=== PATIENT | female | born 1995 | race Hispanic/Latino ===

== ENCOUNTER → 2017-11-04 | Outpatient (CLI) | payer OTHER ==
[2017-11-04 13:13] LABS: BASO % 0.1 % (0.0-1.0); EOS # 0.2 10^3/uL (0.0-0.50); EOS % 3.1 % (0.0-3.0); HEMATOCRIT 32.7 % (36.0-47.0); IMMATURE GRANULOCYTE # 0.1 10^3/uL (0-0); IMMATURE GRANULOCYTE % 0.9 % (0-0); LYMPH # 1.7 10^3/uL (1.5-6.5); LYMPH % 24.1 % (24.0-44.0); MEAN CORPUSCULAR HEMOGLOBIN 29.7 pg (27.0-33.0); MEAN CORPUSCULAR HGB CONC 33.6 g/dl (32.0-36.5); MEAN CORPUSCULAR VOLUME 88.4 fl (80.0-96.0); MONO # 0.6 10^3/uL (0.0-0.8); MONO % 8.8 % (0.0-5.0); NEUTROPHILS # 4.4 10^3/uL (1.8-7.7); PLATELET COUNT, AUTOMATED 308 10^3/uL (150-450); RED CELL DISTRIBUTION WIDTH 13.2 % (11.5-14.5)
[2017-11-04 14:51] LABS: CHLAMYDIA DNA AMPLIFICATION NEGATIVE (NEGATIVE); GC DNA AMPLIFICATION NEGATIVE (NEGATIVE)
[2017-11-05 17:29] LABS: RUBELLA IgG QUALITATIVE IMMUNE (IMMUNE)
[2017-11-05 17:37] LABS: HBsAg Prenatal NEGATIVE (NEGATIVE)
[2017-11-05 17:59] LABS: HIV 1&2 SCREEN CENTAUR NEGATIVE (NEGATIVE)
[2017-11-05 17:59] LABS: HEPATITIS C VIRUS ABY INDEX 0.1 INDEX (<0.8)
== END ==
LOC: M WUC 10:16
DX: Z3A.15 15 weeks gestation of pregnancy (principal)
CPT/HCPCS: 86762

== ENCOUNTER → 2017-11-11 | Outpatient (CLI) | payer OTHER | LOC: M RAD 09:37 | DX: Z36.89 Encounter for other specified antenatal screening (principal); Z3A.20 20 weeks gestation of pregnancy | CPT/HCPCS: 76817 ==

== ENCOUNTER 2017-12-01 17:05 | Outpatient (CLI) | payer OTHER ==
[2017-12-01 19:46] LABS: APPEARANCE, URINE CLOUDY (CLEAR); BACTERIA, URINE AUTO 1+ (NEGATIVE); BILIRUBIN, URINE AUTO NEGATIVE (NEGATIVE); BLOOD, URINE BLOOD NEGATIVE (NEGATIVE); COLOR, URINE YELLOW (YELLOW); GLUCOSE, URINE (UA) AUTO NEGATIVE (NEGATIVE); KETONE, URINE AUTO 1+ mg/dL (NEGATIVE); LEUKOCYTE ESTERASE, URINE AUTO 3+ (NEGATIVE); MUCUS, URINE SMALL (NEGATIVE); NITRITE, URINE AUTO NEGATIVE (NEGATIVE); PROTEIN, URINE AUTO NEGATIVE (NEGATIVE); RBC, URINE AUTO 2 /HPF (0-3); SPECIFIC GRAVITY URINE AUTO 1.026 (1.002-1.035); SQUAMOUS EPITHELIAL CELL UR AU 14 /HPF (0-6); UROBILINOGEN, URINE AUTO 0.2 mg/dL (0.0-2.0); WBC, URINE AUTO 56 /HPF (0-3)
[2017-12-01 21:55] LABS: CHLAMYDIA DNA AMPLIFICATION NEGATIVE (NEGATIVE); GC DNA AMPLIFICATION NEGATIVE (NEGATIVE)
== END 2017-12-01 20:20 | disposition home or self-care (01) ==
LOC: M LDO 17:05
DX: O99.89 Other specified diseases and conditions complicating pregnancy, childbirth and the puerperium (principal); Z3A.22 22 weeks gestation of pregnancy; O23.42 Unspecified infection of urinary tract in pregnancy, second trimester
CPT/HCPCS: 76815

== ENCOUNTER → 2018-01-19 | Outpatient (CLI) | payer OTHER ==
[2018-01-19 10:49] LABS: BASO % 0.4 % (0.0-1.0); EOS # 0.1 10^3/uL (0.0-0.50); HEMATOCRIT 32.4 % (36.0-47.0); HEMOGLOBIN 10.6 g/dl (12.0-16.0); IMMATURE GRANULOCYTE % 1.1 % (0-3.0); LYMPH # 1.7 10^3/uL (1.5-6.5); LYMPH % 17.9 % (24.0-44.0); MEAN CORPUSCULAR HGB CONC 32.7 g/dl (32.0-36.5); MEAN CORPUSCULAR VOLUME 88.8 fl (80.0-96.0); MONO # 0.7 10^3/uL (0.0-0.8); MONO % 7.7 % (0.0-5.0); NEUTROPHILS # 6.6 10^3/uL (1.8-7.7); NEUTROPHILS % 71.9 % (36.0-66.0); PLATELET COUNT, AUTOMATED 296 10^3/uL (150-450); RED BLOOD COUNT 3.65 10^6/uL (4.00-5.40); RED CELL DISTRIBUTION WIDTH 12.2 % (11.5-14.5); WHITE BLOOD COUNT 9.2 10^3/uL (4.0-10.0)
[2018-01-19 11:13] LABS: GLUCOSE CHALLENGE TEST 1 HOUR 92 MG/DL (LESS THAN 140)
[2018-01-19 11:35] LABS: RUBELLA IgG QUALITATIVE IMMUNE (IMMUNE)
[2018-01-19 11:36] LABS: HBsAg Prenatal NEGATIVE (NEGATIVE)
[2018-01-19 12:04] LABS: HIV 1&2 SCREEN CENTAUR NEGATIVE (NEGATIVE)
== END ==
LOC: M WUC 09:37
DX: Z34.82 Encounter for supervision of other normal pregnancy, second trimester (principal)
CPT/HCPCS: 82950

== ENCOUNTER → 2018-03-15 | Outpatient (REF) | payer OTHER | LOC: M LAB REF 13:20 | DX: Z34.83 Encounter for supervision of other normal pregnancy, third trimester (principal) ==

== ENCOUNTER 2018-03-22 11:14 | Inpatient (IN) | payer OTHER ==
[2018-03-22 12:27] LABS: HEMATOCRIT 32.4 % (36.0-47.0); HEMOGLOBIN 10.8 g/dl (12.0-15.5); MEAN CORPUSCULAR HEMOGLOBIN 26.9 pg (27.0-33.0); MEAN CORPUSCULAR HGB CONC 33.3 g/dl (32.0-36.5); MEAN CORPUSCULAR VOLUME 80.8 fl (80.0-96.0); PLATELET COUNT, AUTOMATED 343 10^3/uL (150-450); RED BLOOD COUNT 4.01 10^6/uL (4.00-5.40); WHITE BLOOD COUNT 12.5 10^3/uL (4.0-10.0)
[2018-03-22] MEDS ORDERED: LR 1,000 ML IV (20:36)
[2018-03-22] MEDS ORDERED: OXYTOCIN DRIP 30 UNITS in APPROPRIATE DILUENT 1 EA IV (20:45)
[2018-03-22] MEDS ORDERED: MEASLES,MUMPS,RUBELLA VACCINE INJ (MMR-II) (90707) SC (23:00)
[2018-03-22] MEDS ORDERED: DIBUCAINE 1% OINTMENT 30GM TOP (23:00)
[2018-03-22] MEDS ORDERED: ONDANSETRON 4MG/2ML VIAL (J2405) IV (23:00)
[2018-03-22] MEDS ORDERED: RHOGAM 300 MCG (1500 IU) INJ (J2790) IM (23:00)
[2018-03-22] MEDS: OXYTOCIN DRIP 30 UNITS in APPROPRIATE DILUENT 1 EA IV (23:00)
[2018-03-22] MEDS ORDERED: DOCUSATE SODIUM 100 MG CAP PO (23:00)
[2018-03-22] MEDS ORDERED: METHYLERGONOVINE MALEATE 0.2 MG TAB PO (23:00)
[2018-03-22] MEDS ORDERED: ACETAMINOPHEN 500 MG TAB PO (23:00)
[2018-03-23] MEDS: IBUPROFEN 800 MG TAB PO (00:42)
[2018-03-23] MEDS: PRENATAL VITAMINS CHEWABLE TABLET PO (07:51)
[2018-03-24] MEDS: PRENATAL VITAMINS CHEWABLE TABLET PO (09:00)
== END 2018-03-24 11:35 | disposition home or self-care (01) | DRG 560 ==
LOC: M LDI 11:14 → M OBS 03-23 00:48
PROVIDERS: Specialist
PROC: 10E0XZZ Delivery of Products of Conception, External Approach (ICD-10-PCS; principal; 2018-03-22)
DX: O80 Encounter for full-term uncomplicated delivery (principal); Z37.0 Single live birth; Z3A.38 38 weeks gestation of pregnancy

== ENCOUNTER 2018-05-27 14:10 | Day surgery (SDC) | payer OTHER ==
[~2018-05-27 14:10] MED LIST: GLYCOPYRROLATE INJ 0.2 MG/ML 2 ML VIAL As Ordered; KETOROLAC 60 MG/2 ML VIAL (J1885) As Ordered; LIDOCAINE 2% INJ 100 MG/5 ML SDV (FOR ANES.) As Ordered; MIDAZOLAM INJ 2 MG/2 ML VIAL (J2250) As Ordered; NEOSTIGMINE 10 MG/10 ML VIAL (J2710) As Ordered; ONDANSETRON 4MG/2ML VIAL (J2405) As Ordered; PROPOFOL 200 MG/20 ML VIAL As Ordered; ROCURONIUM BROMIDE 50 MG/5 ML VIAL As Ordered; dexameTHASONE 4 MG/ML 1ML VIAL (J1100) As Ordered; fentaNYL 100 MCG/2 ML INJECTION (J3010) As Ordered
[2018-05-27 14:36] LABS: HEMATOCRIT 35.3 % (36.0-47.0); HEMOGLOBIN 11.3 g/dl (12.0-15.5); MEAN CORPUSCULAR HEMOGLOBIN 26.3 pg (27.0-33.0); MEAN CORPUSCULAR VOLUME 82.1 fl (80.0-96.0); PLATELET COUNT, AUTOMATED 333 10^3/uL (150-450); RED CELL DISTRIBUTION WIDTH 15.6 % (11.5-14.5); WHITE BLOOD COUNT 7.2 10^3/uL (4.0-10.0)
[2018-05-27] MEDS: LR 1,000 ML IV ×2 (14:53)
[2018-05-27] MEDS: BUPIVACAINE HCL 0.25% 10 ML VIAL As Ordered ×4 (15:13→15:44)
[2018-05-27 15:16] LABS: CONTROL LINE HCG INT CTR LINE PRESENT; HCG, SERUM QUALITATIVE NEGATIVE (NEGATIVE)
[2018-05-27] MEDS: ONDANSETRON 4MG/2ML VIAL (J2405) IV ×2 (16:40)
[2018-05-27] MEDS ORDERED: PERCOCET 5MG/325MG TAB PO ×4 (16:45)
[2018-05-27] MEDS ORDERED: fentaNYL 100 MCG/2 ML INJECTION (J3010) IV ×2 (16:45)
[2018-05-27] MEDS ORDERED: LR 1,000 ML IV ×4 (16:45)
[2018-05-27] MEDS: PERCOCET 5MG/325MG TAB PO ×4 (16:47→17:15)
== END 2018-05-27 17:55 | disposition home or self-care (01) ==
LOC: M SDC 14:10
DX: Z30.2 Encounter for sterilization (principal)
CPT/HCPCS: 58671